=== PATIENT | female | born 2000 | race Caucasian/White ===

== ENCOUNTER 2025-10-24 11:31 | Emergency (ER) | payer BC, SELFPAY ==
[2025-10-24 11:35] VITALS: BP 131/90
[2025-10-24 12:26] VITALS: BMI 23.6
--- NOTE | 2025-10-24 12:35 | EDRN ---
These 3 sites each have MULTIPLE lacerations that are gaping. They are over 12 hours old.
[2025-10-24] MEDS: ATIVAN 0.5 MG IV ×2 (13:12→14:03)
--- NOTE | 2025-10-24 13:18 | ED.GENMED ---
History of Present Illness
<Lc Fleming MD - Last Filed: 10/24/25 13:20>
General
Chief Complaint: Skin Surface Trauma
Time Seen by Provider: 10/24/25 12:12
<Lissette Mireles PA-C - Last Filed: 10/24/25 15:57>
History of Present Illness
History of Present Illness:
Patient is a 25-year-old female with past medical history of alcohol use and suicidal ideations who presents with multiple lacerations to her bilateral thighs and left arm. Is unsure when this occurred as she was drinking last night and then woke
up with these lacerations. Boyfriend reports that he received a text message from her stating that she was bleeding and sent a friend over who found her with these lacerations. No one else was present at the time and patient was home alone.
Unclear timing of when this occurred.
Phy Exam
<Lissette Mireles PA-C - Last Filed: 10/24/25 15:57>
General Physical Exam
General Presentation: well appearing and no apparent distress
General Skin: warm and dry
General Habitus: normal
General Mental: alert
General Hydration: appears well hydrated
ENT Exam
ENT Exam: EOMI, pharynx normal, neck supple and normocephalic
Eye Exam
Eye Exam: PERRL, cornea clear and conjunctiva normal
Cardiovascular Exam
Cardiovascular Exam: regular rate/rhythm, no edema, no murmur and normal peripheral pulses
Pulmonary Exam
Pulmonary Exam: lungs clear, no respiratory distress, no rales, no crackles, no rhonchi, no stridor, no wheezing and no cough
Gastrointestinal Exam
Gastrointestinal Exam: normal bowel sounds, non tender, soft, no organomegaly, no pulsatile mass and non distended
Neurological Exam
Neurological Exam: alert, oriented x3, no motor deficits and speech normal
Musculoskeletal Exam
Musculoskeletal Exam: full ROM and no edema
Skin Exam
Skin Exam: normal color, warm/dry, no rash, no petechia and other (Multiple lacerations to right thigh, 1 laceration to left thigh and 3 lacerations to left forearm)
Psychiatric Exam
Psychiatric Exam: normal mood/affect
Course
<Lc Fleming MD - Last Filed: 10/24/25 13:20>
Orders/Labs/Results
Orders:
Orders
10/24/25 13:02
Lorazepam [Ativan] 0.5 mg IV NOW STA
10/24/25 13:57
Lorazepam [Ativan] 2 mg .ROUTE .STK-MED ONE
10/24/25 14:02
Lorazepam [Ativan] 0.5 mg IV NOW STA
Vital Signs
Initial and Last Documented VS:
Initial Vital Signs
Temp Pulse Resp BP Pulse Ox
37.2 C 92 16 131/90 97
10/24/25 11:35 10/24/25 11:35 10/24/25 11:35 10/24/25 11:35 10/24/25 11:35
Last Documented Vital Signs
Temp Pulse Resp BP Pulse Ox
37.2 C 79 15 106/66 97
10/24/25 11:35 10/24/25 14:39 10/24/25 14:39 10/24/25 14:39 10/24/25 13:19
<Lissette Mireles PA-C - Last Filed: 10/24/25 15:57>
Orders/Labs/Results
Orders:
Orders
10/24/25 13:02
Lorazepam [Ativan] 0.5 mg IV NOW STA
10/24/25 13:57
Lorazepam [Ativan] 2 mg .ROUTE .STK-MED ONE
10/24/25 14:02
Lorazepam [Ativan] 0.5 mg IV NOW STA
Vital Signs
Initial and Last Documented VS:
Initial Vital Signs
Temp Pulse Resp BP Pulse Ox
37.2 C 92 16 131/90 97
10/24/25 11:35 10/24/25 11:35 10/24/25 11:35 10/24/25 11:35 10/24/25 11:35
Last Documented Vital Signs
Temp Pulse Resp BP Pulse Ox
37.2 C 79 15 106/66 97
10/24/25 11:35 10/24/25 14:39 10/24/25 14:39 10/24/25 14:39 10/24/25 13:19
Procedures
<Lissette Mireles PA-C - Last Filed: 10/24/25 15:57>
Laceration Closure
Right Thigh Lacerations x5:
Status of Wound: clean
Description of Wound Edges: sharp
Preparation: cleaned with saline and cleaned with Betadine
Anesthesia: other (Half percent bupivacaine)
Revision/Debridement: routine- no revision
Type of Closure: single layer closure
Skin Closure Material: 3-0 nylon
Additional information:
Laceration 1 -1 running suture
Laceration 2 -3 simple interrupted sutures
Laceration 3 -1 running suture
Laceration 4 -1 simple interrupted suture
Laceration 5 -1 running suture
Left thigh :
Status of Wound: clean
Description of Wound Edges: sharp
Preparation: cleaned with saline and cleaned with Betadine
Anesthesia: other (Half percent bupivacaine)
Skin Closure Material: 3-0 nylon
Number of sutures: 1
Additional information:
1 running suture
Left forearm x 3:
Status of Wound: clean
Description of Wound Edges: sharp
Preparation: cleaned with saline and cleaned with Betadine
Anesthesia: other (Half Percent bupivacaine)
Type of Closure: single layer closure
Skin Closure Material: 3-0 nylon
Additional information:
Laceration one - 1 running suture
Laceration 3 -3 simple interrupted sutures
Laceration 3 -1 running suture
<Lissette Mireles PA-C - Last Filed: 10/24/25 15:57>
MDM/Problems Addressed
Differential Diagnosis Includes:
Lacerations are likely 12 to 15 hours old. Discussed delayed primary closure with the patient. She is in agreement with the plan. Wound was thoroughly irrigated with saline and Betadine. Anesthetized and then closed with 3-0 nylon sutures. Will
need removal in 10 to 14 days. Discussed wound care with patient's due to her occupation. She will need to keep these covered while at work and avoid any contamination with other body fluids. Course of Keflex has been sent to her pharmacy for
prophylaxis. Tetanus is up-to-date. Patient does not have any suicidal ideations or thoughts of self-harm. Had self-harm in the past. Does not recall the incident due to her level of intoxication. Does not believe that she was harmed by anyone
else. Offered her support and crisis consult. She is declining at this time. Boyfriend at the bedside who agrees that patient does not present a danger to herself. He will be with her throughout the rest of the day. Return precautions discussed.
<Lc Fleming MD - Last Filed: 10/24/25 13:20>
*Pulse Oximetry
SaO2: 97
Oxygen Mode of Delivery: Room air
<Lissette Mireles PA-C - Last Filed: 10/24/25 15:57>
*Pulse Oximetry
Patient hypoxic: no
*Critical Care Note
Total Time (30-74mins, 75-104mins- exclusive of procedures): Not Applicable
ED Attending Note
<Lc Fleming MD - Last Filed: 10/24/25 13:20>
ED Attending Note
Patient seen and examined by attending physician: Yes
I performed the substantive portion of visit, reviewed & personally made and approve the management plan that is documented in note by myself or VICKIE.: Yes
ED Attending Note:
Patient went out last evening had 3 drinks. She then does not remember part of the evening. She knows she took a Uber home. Her boyfriend who was not present there noted she did not seem right and had a friend come over. She had cuts at that
time. She denies any sexual assault. She has a history of self cutting. She highly suspects she did this to herself. I discussed whether she wanted to report any potential assault or sexual assault that she declines wanting to do this. She also
declines or denies any suicidal ideation or plan. She states she feels mentally stable at this time.
Multiple lacerations superficial but full-thickness to the thigh and arm. Motor or sensory neurovascular intact. No other signs of lacerations or trauma. Neck is fine back is fine abdomen and chest are fine.
Impression is very very likely self-cutting behavior with lacerations approximately 12 hours old. However cuts are very clean. Given the sharp nature of the cuts and the openness to the wounds feel careful suturing is reasonable. These will be
irrigated and cleaned well. Cover with antibiotics and follow-up. I discussed and offered crisis but patient denies wanting this and does not express anything that would warrant psychiatric committable.
-
Portions of this chart may have been created with voice recognition software.� Occasional wrong word or��sound alike� substitutions may have occurred due to the inherent limitations of voice recognition software.
Discharge Plan
Departure
Patient Disposition: Home (Routine Discharge)
Date of Disposition: 10/24/25
Time of Disposition: 15:28
Patient with high blood pressure during this ER visit?: No
Discharge Problem:
Laceration of multiple sites
Instructions: Stitches - ED (DC)
Prescriptions:
New
cephalexin 500 mg capsule
500 mg PO BID 7 Days Qty: 14 0RF
Referrals:
Jensen Ramos MD [Family Provider, Internal Medicine]
Activity Restrictions/Additional Instructions:
Keep covered while at work. Take full course of antibiotics even if you do not notice any signs of infection. Please call your primary care doctor or return to the ER if you notice redness around the wound, drainage from the wounds or if you have
any fevers over 100.4 that do not respond to Tylenol or ibuprofen.
Interventions
Interventions:
*Risk Screen - Suicide Last Done: 10/24/25 11:35
*General Assessment Last Done: 10/24/25 11:35
*Neglect/Abuse Screening Last Done: 10/24/25 11:35
*ED COVID-19 Vaccine History Last Done: 10/24/25 12:28
*ED Influenza Vaccine History Last Done: 10/24/25 12:28
[facility] Fall Risk Assessment Tool Last Done: 10/24/25 12:27
*Nursing Disposition Last Done: 10/24/25 15:44
ED-Skin Assessment Last Done: 10/24/25 12:33
Discharge Date and Time
Discharge Date/Time: 10/24/25 15:44
Print Language: WELSH
[2025-10-24 14:39] VITALS: BP 106/66
== END 2025-10-24 15:44 | disposition home or self-care (01) ==
LOC: EMR 11:31
PROVIDERS: EMERGENCY PHYSICIAN Emergency Medicine; FAMILY PHYSICIAN Internal Medicine
DX: S51.812A Laceration without foreign body of left forearm, initial encounter (principal); S71.112A Laceration without foreign body, left thigh, initial encounter; S71.111A Laceration without foreign body, right thigh, initial encounter; X78.8XXA Intentional self-harm by other sharp object, initial encounter; R45.851 Suicidal ideations
CPT/HCPCS: 96374; 96376; 12001; 99284